=== PATIENT | female | born 1995 | race American Indian/Alaskan Native ===

== ENCOUNTER 2023-11-05 07:14 | Emergency (ER) | payer MEDICAID ==
[~2023-11-05] VITALS: Ht 170.2 cm; Wt 90.8 kg
[2023-11-05 07:15] VITALS: TEMP 97.9
[2023-11-05 07:51] LABS: URINE HCG NEGATIVE (NEG)
[2023-11-05 07:53] LABS: BILIRUBIN,URINE NEGATIVE (Neg); CLARITY,URINE CLEAR (Clear); COLOR,URINE STRAW (Yellow); GLUCOSE, URINE NEGATIVE (Neg); KETONES,URINE NEGATIVE (Neg); LEUKOCYTE ESTERASE ,URINE NEGATIVE (Neg); NITRITES, URINE NEGATIVE (Neg); OCCULT BLOOD,URINE NEGATIVE (Neg); PH,URINE 5.5 (4.8-8.0); PROTEIN,URINE NEGATIVE (Neg); UROBILINOGEN,URINE 0.2 E.U/dL (0.2-1.0)
[2023-11-05 07:59] LABS: UA COLLECTION TYPE CLN CATCH MIDSTREAM
[2023-11-05 08:04] LABS: EOSINOPHILS # (AUTO) 0.2 X10'3 (0-0.9); MEAN CORPUSCULAR HEMOGLOBIN 27.1 PG (27.0-31.0)
[2023-11-05 08:06] LABS: BASOPHILS % (AUTO) 0.4 % (0-1); EOSINOPHILS % (AUTO) 1.9 % (0-6); HEMATOCRIT 43.2 % (35.0-45.0); MEAN CORPUSCULAR HGB CONC 32.5 g/dL (33.0-36.5); MEAN CORPUSCULAR VOLUME 83.4 FL (78-98); MONOCYTES # (AUTO) 0.5 X10'3 (0-0.9); MONOCYTES % (AUTO) 6.5 % (2-12); NEUTROPHILS # (AUTO) 5.1 X10'3 (1.8-7.7); NEUTROPHILS % (AUTO) 65.2 % (42-75); PLATELET COUNT 239 X10'3 (140-440); RED BLOOD COUNT 5.18 X10'6 (4.20-5.60); RED CELL DISTRIBUTION WIDTH 14.2 % (11.5-14.5); WHITE BLOOD COUNT 7.8 X10'3 (4.5-11.0)
[2023-11-05] MEDS: morphine 4 MG/ML inj SYRINge IV PRN (08:06)
[2023-11-05] MEDS: ondansetron/PF 4mg/2ml inj IV ONE (08:06)
[2023-11-05] MEDS: normal saline 1000ML IV soln IVB ONE (08:08)
[2023-11-05 09:24] LABS: ALANINE AMINOTRANSFERASE 32 U/L (12-78); ALBUMIN 3.7 G/DL (3.4-5.0); ALBUMIN/GLOBULIN RATIO 0.8 (1.1-1.5); ALKALINE PHOSPHATASE 52 IU/L (46-116); ANION GAP 9 (8-16); ASPARTATE AMINO TRANSFERASE 19 U/L (10-37); BILIRUBIN,TOTAL 0.5 MG/DL (0.1-1.0); BLOOD UREA NITROGEN 15 MG/DL (7-18); BUN/CREATININE RATIO 15.2 (10.0-20.0); CALCIUM 9.2 MG/DL (8.5-10.1); CHLORIDE 105 MMOL/L (99-107); CREATININE 0.99 MG/DL (0.40-0.90); GLUCOSE 105 MG/DL (70-104); LIPASE 63 U/L (16-77); POTASSIUM 3.9 MMOL/L (3.5-5.1); SODIUM 139 MMOL/L (135-145); TOTAL CARBON DIOXIDE 24.9 MMOL/L (24-32); TOTAL PROTEIN 8.2 G/DL (6.4-8.2); eCRCL 82 ML/MIN; eGFR 66 ML/MIN
[2023-11-05] MEDS: LIDOcaine Viscous 15ml cup MM PRN (10:07)
[2023-11-05] MEDS: mag hydrox/Alum hydrox/simeth 30ml oral suspension PO ONE (10:07)
[2023-11-05 10:16] VITALS: BP 129/87; PULSE 87; RESP 16; O2SAT 98
== END 2023-11-05 10:20 | disposition home or self-care (01) ==
LOC: ER 07:15
DX: K29.00 Acute gastritis without bleeding (principal); Z79.899 Other long term (current) drug therapy
CPT/HCPCS: 74176; 76700; 80053; 81003; 81025; 83690; 85025; 93005; 96360; 99284; J7030; J2270; J2405